=== PATIENT | female | born 1965 | race Caucasian/White ===

== ENCOUNTER 2024-06-06 14:30 | Outpatient (RCR) | payer OTHER, BC, SELFPAY | END 2024-10-04 23:59 | disposition home or self-care (01) | PROVIDERS: PCP Family Medicine; Visit Provider Family Medicine | DX: M54.50 Low back pain, unspecified (principal); M16.11 Unilateral primary osteoarthritis, right hip; Z51.89 Encounter for other specified aftercare | CPT/HCPCS: 97110; 97140; 97162 ==

== ENCOUNTER 2024-10-26 13:47 | Emergency (ER) | payer BC, SELFPAY ==
--- OUTSIDE RECORDS SUMMARY | 2024-10-26 13:50 | XMS_ITS | Clinical Summary ---
Author Organization [employer] Address [address] [place] [address] Care Team Providers Care Monotyper Name Role Phone Unassigned, Provider Primary Care Provider Unava ilable Source Comments You are receiving this document as you are listed as the primary care provider,follow-up provider, or the patient has been referred to you for consultation.This is in compliance with the Medicare and[facility] E[facility] Incentive Program,which states Providers who transition their patient to another setting of careor provider of care or refers their patient to another provider of care shouldprovide summary care record for each transition of care or referral. [employer] [facility] Allergies No known active allergies Medications * This document contains information received from the source organization and may not represent a complete record from that organization. No known medications Active Problems No known active problems Social History Tobacco Use Types Packs/Day Years Used Date Smoking Tobacco: Never Assessed Comments Unknown Sex and Gender Information Value Date Recorded Sex Assigned at Not on file Legal Sex Female 3:28 AM CDT Gender Identity Not on file Sexual Orientation Not on file Plan of Treatment Health Maintenance Due Date Last Done Comments Cervical Cancer Screening Due 1963 Colon Cancer Screening Plan Due 1963 Hep C Screening (Preventive Services) 1963 Mammogram 1963 HIV Screening (Preventive Services) 1979 Adult Preventive Visit 1981 DTaP/Tdap/Td (1 - Tdap) 1982 Cholesterol 2008 Pneumococcal 50+ Yrs (1 of 1 - PCV) 2013 Zoster/Shingles (1 of 2) 2013 COVID-19 Vaccine (2023-2 5 season) 2024 11/20/2020, 10/23/2020 Influenza (#1) 2024 RSV (1 - 1-dose 75+ series) 2038 HepA Aged Out No longer eligi ble based on patient's age to complete this topic HepB Aged Out No longer eligi ble based on patient's age to complete this topic Hib Aged Out No longer eligi ble based on patient's age to complete this topic IPV (Polio) Aged Out No longer eligi ble based on patient's age to complete this topic MCV4 Aged Out No longer eligi ble based on patient's age to complete this topic Meningococcal B Aged Out No longer el igible based on patient's age to complete this topic Insurance [facility] AND FAMILY Care Teams Monotyper Relationship Specialty Start Date End Date Unassigned, Provider [address] [place] [id number] PCP - General 06/29/01
--- OUTSIDE RECORDS SUMMARY | 2024-10-26 13:50 | XMS_ITS | Clinical Summary ---
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
[2024-10-26 13:58] VITALS: BP 138/79; PULSE 73; RESP 18; TEMP 36.4; O2SAT 97; BMI 25.0
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
--- NOTE | 2024-10-26 14:50 | CRLHL7_ITS ---
For Patients: As a result of the Century Cures Act, medical imaging exams and procedure reports are released immediately into your electronic medical record. You may view this report before your referring provider. If you have questions, please contact your health care provider. INDICATION: Slurred speech. TECHNIQUE: Multiplanar, multisequential MR examination of the brain was performed without the use of intravenous contrast. COMPARISON: None. FINDINGS: Tiny punctate focus of restricted diffusion involving the right precentral gyrus with associated hyperintensity on the ADC map and FLAIR hyperintensity (5:45). No foci of susceptibility artifact. No intracranial hemorrhage, abnormal extra-axial fluid collection or midline shift. The ventricles and cerebral sulci are prominent caliber, compatible with mild generalized parenchymal volume loss. There are scattered foci of T2/FLAIR hyperintensities in the supratentorial white matter diffusely and pontine belly, nonspecific but consistent with chronic microvascular ischemic changes. Tiny chronic lacunar infarcts in the bilateral basal ganglia. There is no hydrocephalus. The basal cisterns remain patent. The major intracranial signal flow voids are preserved, consistent with their patency. Mild mucosal thickening of right maxillary sinus. Trace mastoid effusions. The pituitary gland appears unremarkable. The cerebellar tonsils appear in normal position. IMPRESSION: 1. Tiny punctate focus of restricted diffusion involving the right precentral gyrus likely represents a subacute infarct. No significant vasogenic edema or hemorrhagic conversion. 2. Mild generalized parenchymal volume loss with chronic microvascular ischemic changes. Dictated by Phil Goetz MD @ 10/26/2024 7:18:46 PM (Electronically Signed)
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
--- OUTSIDE RECORDS SUMMARY | 2024-10-26 15:03 | XMS_ITS | Clinical Summary ---
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
--- OUTSIDE RECORDS SUMMARY | 2024-10-26 15:04 | XMS_ITS | Clinical Summary ---
Author Organization [facility] Address [address] [place] [address] Care Team Providers Care Temple Meat Cutter Name Role Phone Unassigned, Provider Primary Care Provider Unava ilable Source Comments You are receiving this document as you are listed as the primary care provider,follow-up provider, or the patient has been referred to you for consultation.This is in compliance with the Medicare and[facility] EHR Incentive Program,which states Providers who transition their patient to another setting of careor provider of care or refers their patient to another provider of care shouldprovide summary care record for each transition of care or referral. [facility] Allergies No known active allergies Medications * [...] patient's age to complete this topic Insurance [facility] INDIVID[facility] AND FAMILY Care Teams Temple Meat Cutter Relationship Specialty Start Date End Date Unassigned, Provider [address] [place] [address] PCP - General 06/29/01
[2024-10-26 18:16] VITALS: BP 141/92; PULSE 68; RESP 14; O2SAT 97
[2024-10-26 19:46] VITALS: PULSE 68; RESP 14; TEMP 36.4
== END 2024-10-26 19:47 | disposition home or self-care (01) ==
PROVIDERS: Emergency Provider Emergency Medicine Emergency Medical Services; PCP Family Medicine
DX: R47.81 Slurred speech (principal)
CPT/HCPCS: 70551; 99283; 99284